=== PATIENT | female | born 1940 | race Two or more races ===

== ENCOUNTER 2018-04-17 10:47 | Emergency (ER) | payer MEDICAID ==
[~2018-04-17] VITALS: Ht 162.6 cm; Wt 68.2 kg
[~2018-04-17 10:47] MED LIST: ATOR20TA PO; CHOL100062 PO; MULT-342 PO; NOR5T PO; NORCO10T PO
[2018-04-17] MEDS ORDERED: traMADol 50MG tablet PO ONE (11:25)
[2018-04-17] MEDS ORDERED: TRAM50TA2 PO (12:34)
[2018-04-17 12:37] VITALS: BP 136/69
== END 2018-04-17 12:38 | disposition home or self-care (01) ==
LOC: ER 10:48
DX: I83.91 Asymptomatic varicose veins of right lower extremity (principal); M54.31 Sciatica, right side; I10 Essential (primary) hypertension; E78.00 Pure hypercholesterolemia, unspecified; Z79.899 Other long term (current) drug therapy
CPT/HCPCS: 93971; 99284

== ENCOUNTER 2021-06-04 08:49 | Emergency (ER) | payer MEDICAID ==
[~2021-06-04] VITALS: Ht 160 cm; Wt 59.1 kg
[2021-06-04] MEDS ORDERED: acetaminophen 325mg tablet PO ONE (09:15)
[2021-06-04 09:37] VITALS: BP 153/74
[2021-06-04] MEDS ORDERED: ALBU6.7H9 INH (10:10)
== END 2021-06-04 10:24 | disposition home or self-care (01) ==
LOC: ER 08:49
DX: R51.9 Headache, unspecified (principal); Z20.822 Contact with and (suspected) exposure to COVID-19; R05 Cough; R50.9 Fever, unspecified; E78.00 Pure hypercholesterolemia, unspecified; I10 Essential (primary) hypertension; Z98.890 Other specified postprocedural states; Z79.899 Other long term (current) drug therapy
CPT/HCPCS: 36415; 71045; 99284; U0003; U0005

== ENCOUNTER 2021-06-06 01:09 | Emergency (ER) | payer MEDICAID ==
[~2021-06-06] VITALS: Ht 160 cm; Wt 61.4 kg
[~2021-06-06 01:09] MED LIST changes: +ALBU6.7H9 INH
[2021-06-06 02:08] LABS: BASOPHILS % (AUTO) 0.5 % (0-1); EOSINOPHILS # (AUTO) 0.1 X10'3 (0-0.9); EOSINOPHILS % (AUTO) 0.7 % (0-6); HEMATOCRIT 38.5 % (35.0-45.0); HEMOGLOBIN 13.1 g/dl (12.0-16.0); LYMPHOCYTES # (AUTO) 2.1 X10'3 (1.1-4.8); LYMPHOCYTES % (AUTO) 23.7 % (21-51); MEAN CORPUSCULAR HEMOGLOBIN 30.1 PG (27.0-31.0); MEAN CORPUSCULAR HGB CONC 33.9 g/dL (33.0-36.5); MEAN CORPUSCULAR VOLUME 88.6 FL (78-98); MEAN PLATELET VOLUME 7.2 FL (7.4-10.4); MONOCYTES # (AUTO) 0.8 X10'3 (0-0.9); MONOCYTES % (AUTO) 9.4 % (2-12); NEUTROPHILS # (AUTO) 5.8 X10'3 (1.8-7.7); NEUTROPHILS % (AUTO) 65.7 % (42-75); PLATELET COUNT 345 X10'3 (140-440); RED BLOOD COUNT 4.34 X10'6 (4.20-5.60); RED CELL DISTRIBUTION WIDTH 13.4 % (11.5-14.5); WHITE BLOOD COUNT 8.8 X10'3 (4.5-11.0)
[2021-06-06 02:16] LABS: ALANINE AMINOTRANSFERASE 22 U/L (12-78); ALBUMIN 2.8 G/DL (3.4-5.0); ALBUMIN/GLOBULIN RATIO 0.6 (1.1-1.5); ALKALINE PHOSPHATASE 130 IU/L (46-116); ANION GAP 9 (8-16); ASPARTATE AMINO TRANSFERASE 13 U/L (10-37); BILIRUBIN,DIRECT 0.1 MG/DL (0-0.3); BILIRUBIN,TOTAL 0.5 MG/DL (0.1-1.0); BLOOD UREA NITROGEN 7 MG/DL (7-18); BUN/CREATININE RATIO 7.9 (6.6-38.0); CALCIUM 10.6 MG/DL (8.5-10.1); CHLORIDE 103 MMOL/L (99-107); CREATININE 0.89 MG/DL (0.40-0.90); GLUCOSE 134 MG/DL (70-104); LIPASE 90 U/L (73-393); POTASSIUM 4.6 MMOL/L (3.5-5.1); SODIUM 136 MMOL/L (135-145); TOTAL CARBON DIOXIDE 24.2 MMOL/L (24-32); TOTAL PROTEIN 7.6 G/DL (6.4-8.2); eGFR 61 ML/MIN
[2021-06-06] MEDS ORDERED: diphenhydrAMINE 50 mg/ml inj IV ONE (02:20)
[2021-06-06] MEDS ORDERED: metoclopramide 5 mg/ml inj IV ONE (02:20)
[2021-06-06] MEDS ORDERED: ACYC-127 PO (04:20)
[2021-06-06] MEDS ORDERED: GABA-534 PO (04:20)
[2021-06-06] MEDS ORDERED: gabapentin 400mg capsule PO STA (04:27)
--- NOTE | 2021-06-06 05:34 | NUR ---
PATIENT WAS SEEN BY ER MD, RX MED'S ORDERED AND GIVEN. DISCH TO HOME WITH FLU INST. NO ER BED WAS AVAILABLE
[2021-06-06 05:36] VITALS: BP 137/87
[2021-06-06] MEDS ORDERED: HYDROcodone/acetaminophen 5mg/325mg tablet PO ONE (05:45)
== END 2021-06-06 06:08 | disposition home or self-care (01) ==
LOC: ER 01:10
DX: B02.9 Zoster without complications (principal); M54.2 Cervicalgia; R53.1 Weakness; I10 Essential (primary) hypertension; R05 Cough; R51.9 Headache, unspecified; E78.00 Pure hypercholesterolemia, unspecified; Z98.890 Other specified postprocedural states; Z79.2 Long term (current) use of antibiotics; Z79.899 Other long term (current) drug therapy
CPT/HCPCS: 36415; 71045; 80048; 80076; 83690; 85025; 96374; 96375; 99284; J1200; J2765